=== PATIENT | female | born 1940 | race Caucasian/White ===

== ENCOUNTER → 2016-05-24 | Outpatient (CLI) | payer OTHER | LOC: BMCIMAGING 10:50 | DX: Z12.31 Encounter for screening mammogram for malignant neoplasm of breast (principal) | CPT/HCPCS: G0202 ==

== ENCOUNTER → 2016-10-13 | Outpatient (CLI) | payer OTHER | LOC: BMCIMAGING 12:20 | PROVIDERS: ATTEND Physician Assistant Medical | DX: I65.23 Occlusion and stenosis of bilateral carotid arteries (principal) ==

== ENCOUNTER → 2016-11-29 | Outpatient (CLI) | payer OTHER | LOC: BMCIMAGING 13:26 | PROVIDERS: ATTEND Internal Medicine | DX: R10.30 Lower abdominal pain, unspecified (principal); R14.0 Abdominal distension (gaseous); R11.2 Nausea with vomiting, unspecified; Z90.710 Acquired absence of both cervix and uterus ==

== ENCOUNTER → 2016-12-06 | Outpatient (CLI) | payer OTHER ==
[~2016-12-06] MED LIST: IOPAMIDOL (ISOVUE-300) 100 ML BTL ONE
== END ==
LOC: FIMAGING 13:56
PROVIDERS: ATTEND Internal Medicine
DX: K76.89 Other specified diseases of liver (principal)
CPT/HCPCS: 74177; Q9967

== ENCOUNTER → 2017-05-26 | Outpatient (CLI) | payer OTHER | LOC: BMCIMAGING 14:32 | PROVIDERS: ATTEND Internal Medicine | DX: Z12.31 Encounter for screening mammogram for malignant neoplasm of breast (principal); M06.9 Rheumatoid arthritis, unspecified ==

== ENCOUNTER → 2018-06-15 | Outpatient (CLI) | payer OTHER | LOC: BMCIMAGING 13:46 | PROVIDERS: ATTEND Internal Medicine | DX: Z12.31 Encounter for screening mammogram for malignant neoplasm of breast (principal) ==

== ENCOUNTER → 2018-06-27 | Outpatient (CLI) | payer OTHER | LOC: BMCIMAGING 12:59 | DX: I65.23 Occlusion and stenosis of bilateral carotid arteries (principal) ==